=== PATIENT | female | born 1950 | race Caucasian/White ===

== ENCOUNTER 2017-11-20 11:37 | Outpatient (CLI) | payer OTHER ==
[~2017-11-20 11:37] MED LIST: CIPRO500 MG PO; FLAGYL500MG PO; HYOSCYAMINE0.125 M1 SL; INTESTINEX1 CA1 PO; PROTONIX40 MG PO; SUCRALFATE1 GM/10 ML PO; SYNTHROID50 MCG PO
== END 2017-11-20 11:42 | disposition home or self-care (01) ==
LOC: RAD 11:37
DX: H25.011 Cortical age-related cataract, right eye (principal); Z98.41 Cataract extraction status, right eye

== ENCOUNTER 2018-03-18 15:15 | Emergency (ER) | payer OTHER ==
[~2018-03-18] VITALS: Ht 162.6 cm; Wt 68.0 kg
[2018-03-18] MEDS ORDERED: PLAVIX75 MG (15:34)
[2018-03-18] MEDS ORDERED: LIPITOR20 MG (15:35)
[2018-03-19] MEDS ORDERED: CELEBREX200MG PO (01:03)
[2018-03-19] MEDS ORDERED: LEVSIN/SL0.125 MG PO (01:03)
[2018-03-19] MEDS ORDERED: INTESTINEX680 M1 PO (01:03)
[2018-03-19] MEDS ORDERED: MUCINEX D ER 11 EACH PO (01:03)
== END 2018-03-19 01:31 | disposition home or self-care (01) ==
LOC: ER 15:15
DX: K66.0 Peritoneal adhesions (postprocedural) (postinfection) (principal); K60.2 Anal fissure, unspecified; K64.4 Residual hemorrhoidal skin tags; K58.8 Other irritable bowel syndrome; N20.0 Calculus of kidney

== ENCOUNTER 2020-03-22 11:08 | Outpatient (CLI) | payer OTHER ==
[~2020-03-22 11:08] MED LIST changes: +CELEBREX200MG PO; +INTESTINEX680 M1 PO; +LEVSIN/SL0.125 MG PO; +LIPITOR20 MG; +MUCINEX D ER 11 EACH PO; +PLAVIX75 MG
== END 2020-03-22 17:57 | disposition home or self-care (01) ==
LOC: OFIC 805 11:08
PROVIDERS: ATTEND Otolaryngology
DX: R49.0 Dysphonia (principal); R09.89 Other specified symptoms and signs involving the circulatory and respiratory systems; K21.00 Gastro-esophageal reflux disease with esophagitis, without bleeding; J32.8 Other chronic sinusitis

== ENCOUNTER 2020-04-19 13:55 | Outpatient (CLI) | payer OTHER | END 2020-04-19 15:30 | disposition home or self-care (01) | LOC: OFIC 805 13:55 | PROVIDERS: ATTEND Otolaryngology | DX: R09.89 Other specified symptoms and signs involving the circulatory and respiratory systems (principal); K21.00 Gastro-esophageal reflux disease with esophagitis, without bleeding; J34.89 Other specified disorders of nose and nasal sinuses; R09.81 Nasal congestion; K21.9 Gastro-esophageal reflux disease without esophagitis ==

== ENCOUNTER 2022-09-05 06:30 | Outpatient (CLI) | payer OTHER | END 2022-09-05 06:32 | disposition home or self-care (01) | LOC: LAB 06:30 | PROVIDERS: ATTEND Internal Medicine Hematology & Oncology | DX: R79.9 Abnormal finding of blood chemistry, unspecified (principal); R74.02 Elevation of levels of lactic acid dehydrogenase [LDH]; K76.89 Other specified diseases of liver; D63.8 Anemia in other chronic diseases classified elsewhere; D55.0 Anemia due to glucose-6-phosphate dehydrogenase [G6PD] deficiency; D51.1 Vitamin B12 deficiency anemia due to selective vitamin B12 malabsorption with proteinuria; D51.0 Vitamin B12 deficiency anemia due to intrinsic factor deficiency; E03.8 Other specified hypothyroidism; E06.3 Autoimmune thyroiditis; C50.919 Malignant neoplasm of unspecified site of unspecified female breast; R97.8 Other abnormal tumor markers; C25.9 Malignant neoplasm of pancreas, unspecified; C56.9 Malignant neoplasm of unspecified ovary; R97.1 Elevated cancer antigen 125 [CA 125]; R97.0 Elevated carcinoembryonic antigen [CEA]; R63.4 Abnormal weight loss; Z86.16 Personal history of COVID-19; D50.9 Iron deficiency anemia, unspecified; I11.9 Hypertensive heart disease without heart failure; E56.8 Deficiency of other vitamins; N39.0 Urinary tract infection, site not specified; Z12.11 Encounter for screening for malignant neoplasm of colon; R19.5 Other fecal abnormalities; E55.9 Vitamin D deficiency, unspecified; N19 Unspecified kidney failure; E11.9 Type 2 diabetes mellitus without complications ==

== ENCOUNTER 2022-12-04 09:14 | Outpatient (CLI) | payer OTHER ==
[2022-12-04 10:20] LABS: HEMATOCRIT 37.3 % (36.0-45.00); HEMOGLOBIN 12.6 g/dL (12.0-15.00); MEAN CORPUSCULAR HEMOGLOBIN 32.1 pg (27.00-32.0); MEAN CORPUSCULAR HGB CONC 33.8 g/dl (32.0-36.0); PLATELET COUNT 166 K/uL (150-450); RED BLOOD COUNT 3.93 M/uL (4.00-6.00); RED CELL DISTRIBUTION WIDTH 15.2 % (11.5-14.5)
[2022-12-04 10:56] LABS: ALBUMIN 3.9 gm/dL (3.4-5.0); BILIRUBIN TOTAL 0.95 mg/dL (0.3-1.2); CALCIUM 8.9 mg/dL (8.5-10.1); CHOL HDL RATIO 1.9 (0-5.0); CREATININE SERUM 0.56 mg/dL (0.55-1.02); GFR 106.41; GLOBULINA 3.2 G/DL (2.4-3.5); POTASSIUM 4.15 mEq/L (3.5-5.1); TOTAL PROTEIN 7.1 gm/dL (6.4-8.2); TSH 2.25 uIU/mL (0.358-3.74)
[2022-12-04 11:01] LABS: URINE APPEARANCE Clear; URINE BILIRRUBIN Negative (NEGATIVE); URINE BLOOD Negative; URINE COLOR Yellow; URINE GLUCOSE Negative (NEGATIVE); URINE LEUKOCYTE Large; URINE NITRATE Negative; URINE PROTEIN Negative (NEGATIVE); URINE UROBILINOGEN 0.2 E.U./dl
[2022-12-04 11:03] LABS: URINE BACTERIA 264.5 uL (0.0-1933); URINE EPITHELIAL CELLS 7.4 uL (0.0-38.8); URINE RBC 4.5 uL (0.0-20.8); URINE WBC 13.5 uL (0.0-23.2)
[2022-12-04 11:13] LABS: FOLIC ACID > 20.00 ng/ml (4.78-20)
[2022-12-04 13:18] LABS: MANUAL PLATELET COUNT 208
[2022-12-04 13:20] LABS: PLATELET ESTIMATE NORMAL (NORMAL)
== END 2022-12-04 09:23 | disposition home or self-care (01) ==
LOC: LAB 09:14
PROVIDERS: ATTEND Internal Medicine Hematology & Oncology
DX: D50.8 Other iron deficiency anemias (principal); R79.9 Abnormal finding of blood chemistry, unspecified; I10 Essential (primary) hypertension; R74.02 Elevation of levels of lactic acid dehydrogenase [LDH]; K76.89 Other specified diseases of liver; D51.8 Other vitamin B12 deficiency anemias; R63.4 Abnormal weight loss; E03.8 Other specified hypothyroidism; E78.2 Mixed hyperlipidemia; Z86.16 Personal history of COVID-19; E03.9 Hypothyroidism, unspecified; E56.8 Deficiency of other vitamins; N39.0 Urinary tract infection, site not specified; Z12.11 Encounter for screening for malignant neoplasm of colon; R19.5 Other fecal abnormalities; N19 Unspecified kidney failure; E11.9 Type 2 diabetes mellitus without complications; Z88.5 Allergy status to narcotic agent

== ENCOUNTER → 2024-03-25 07:59 | Outpatient (CLI) | payer OTHER ==
[2024-03-25 08:39] LABS: URINE APPEARANCE Clear; URINE BILIRRUBIN Negative (NEGATIVE); URINE BLOOD Negative; URINE COLOR Yellow; URINE GLUCOSE Negative (NEGATIVE); URINE KETONE Negative (NEGATIVE); URINE LEUKOCYTE Moderate; URINE NITRATE Negative; URINE PROTEIN Negative (NEGATIVE); URINE UROBILINOGEN 0.2 E.U./dl
[2024-03-25 08:40] LABS: URINE BACTERIA 307.1 uL (0.0-1933); URINE EPITHELIAL CELLS 26.2 uL (0.0-38.8); URINE RBC 5.8 uL (0.0-20.8); URINE WBC 27.5 uL (0.0-23.2)
[2024-03-25 08:44] LABS: URINE CAST 0.14 uL (0.0-1.40)
[2024-03-25 08:45] LABS: HEMATOCRIT 39.2 % (36.0-45.00); HEMOGLOBIN 13.1 g/dL (12.0-15.00); MEAN CELL VOLUME 95.4 fL (80.00-100.00); MEAN CORPUSCULAR HEMOGLOBIN 31.9 pg (27.00-32.0); MEAN CORPUSCULAR HGB CONC 33.4 g/dl (32.0-36.0); PLATELET COUNT 179 K/uL (150-450); RED BLOOD COUNT 4.11 M/uL (4.00-6.00)
[2024-03-25 09:14] LABS: INR 0.99; PARTIAL THROMBOPLASTIN TIME 24.1 SECONDS (22.0-34.0); PROTHROMBIN TIME 10.8 SECONDS (9.0-11.5)
[2024-03-25 09:52] LABS: ALBUMIN 3.9 gm/dL (3.4-5.0); CALCIUM 9.3 mg/dL (8.5-10.1); CHOL HDL RATIO 1.8 (0-5.0); CREATININE SERUM 0.56 mg/dL (0.55-1.02); GFR 106.11; POTASSIUM 4.23 mEq/L (3.5-5.1); TOTAL PROTEIN 6.9 gm/dL (6.4-8.2); TSH 1.41 uIU/mL (0.358-3.74)
== END | disposition home or self-care (01) ==
LOC: RAD 07:59
PROVIDERS: ATTEND Obstetrics & Gynecology Gynecology
DX: I10 Essential (primary) hypertension (principal); R07.89 Other chest pain; Z01.810 Encounter for preprocedural cardiovascular examination

== ENCOUNTER 2024-04-15 05:00 | Day surgery (SDC) | payer OTHER ==
[~2024-04-15] VITALS: Ht 121.9 cm; Wt 5.0 kg
[~2024-04-15 05:00] MED LIST changes: +ARNUITY ELLIPT50 MCG IH; +ASTEPRO AL205.5 MCG/; +MELATONIN5 M1 PO; +MONTELUKAST SODI4 M1; +PREMARIN0.45 MG; +TRIMO-SAN JE113.4 G1; +VITAMIN B12500 MCG PO
[2024-04-15] MEDS ORDERED: CEFAZOLIN SODIUM 1,000 MG VIAL ONE (09:37)
[2024-04-15] MEDS ORDERED: GENTAMICIN SULFATE 40 MG/ML VIAL ONE (09:37)
[2024-04-15] MEDS ORDERED: TRAM1TAB98 PO (11:10)
[2024-04-15] MEDS ORDERED: MACROBID 100 M100 MG PO (11:11)
[2024-04-15] MEDS ORDERED: MORPHINE SULFATE 4 MG/ML VIAL IV ONE (12:35)
== END 2024-04-15 13:55 | disposition home or self-care (01) ==
LOC: O/R 05:00 → SURH 05:00 → CIR.AMB 05:00 → SURH 07:00 → EDSTATUS 11:00 → O/R 13:55 → CIR.AMB 13:55
PROVIDERS: ATTEND Obstetrics & Gynecology Gynecology
DX: N81.5 Vaginal enterocele (principal); N81.6 Rectocele